=== PATIENT | male | born 1980 | race Caucasian/White ===

== ENCOUNTER 2016-12-12 09:06 | Emergency (ER) | payer MEDICAID ==
[~2016-12-12] VITALS: Ht 177.8 cm; Wt 139.1 kg
[~2016-12-12 09:06] MED LIST: AMLO2.5T PO; ATOR10TA84 PO; HYDR25TA PO; INS7030 SQ; METF500T4 PO
[2016-12-12 09:16] LABS: GLUCOSE,POINT OF CARE 463 MG/DL (70-110)
[2016-12-12 10:37] LABS: GLUCOSE,POINT OF CARE 482 MG/DL (70-110)
[2016-12-12 11:41] LABS: GLUCOSE COMMENT 1 Doctor Notified; GLUCOSE,POINT OF CARE 350 MG/DL (70-110)
[2016-12-12] MEDS ORDERED: BENZONATATE 100 MG CAPSULE PO ONE (12:00)
[2016-12-12] MEDS ORDERED: PredniSONE 20 MG TABLET PO ONE (12:00)
[2016-12-12] MEDS ORDERED: INSULIN REGULAR, HUMAN 100 UNITS/ML SQ ONE (12:30)
[2016-12-12] MEDS ORDERED: MetFORMIN HCL 500 MG TABLET PO ONE (12:30)
[2016-12-12 12:46] VITALS: BP 142/91
== END 2016-12-12 12:48 | disposition home or self-care (01) ==
LOC: EMS 09:07
DX: J06.9 Acute upper respiratory infection, unspecified (principal); J32.9 Chronic sinusitis, unspecified; E11.65 Type 2 diabetes mellitus with hyperglycemia; Z91.14 Patient's other noncompliance with medication regimen; E78.00 Pure hypercholesterolemia, unspecified; I10 Essential (primary) hypertension; F12.90 Cannabis use, unspecified, uncomplicated; Z79.4 Long term (current) use of insulin; Z91.013 Allergy to seafood; H92.03 Otalgia, bilateral
CPT/HCPCS: 71010; 82962; 96372; 99284; J1815; J7512

== ENCOUNTER 2017-01-20 12:16 | Emergency (ER) | payer MEDICAID ==
[~2017-01-20] VITALS: Ht 180.3 cm; Wt 138.6 kg
[2017-01-20 12:42] LABS: GLUCOSE,POINT OF CARE 360 MG/DL (70-110)
[2017-01-20 14:43] VITALS: BP 124/77
[2017-01-20] MEDS ORDERED: DEXAMETHASONE SOD PHOS 4 MG/ML 5 ML VIAL IM ONE (14:45)
[2017-01-20] MEDS ORDERED: AMOXICILLIN TRIHYDRATE 250 MG CAPSULE PO ONE (14:45)
== END 2017-01-20 15:15 | disposition home or self-care (01) ==
LOC: EMS 12:16
DX: J02.9 Acute pharyngitis, unspecified (principal); H66.93 Otitis media, unspecified, bilateral; E11.9 Type 2 diabetes mellitus without complications; I10 Essential (primary) hypertension; E78.00 Pure hypercholesterolemia, unspecified; F12.90 Cannabis use, unspecified, uncomplicated; Z91.013 Allergy to seafood; Z79.4 Long term (current) use of insulin
CPT/HCPCS: 82962; 96372; 99283; J1100